=== PATIENT | female | born 1985 | race African-American/Black ===

== ENCOUNTER 2016-04-08 12:08 | Day surgery (SDC) | payer OTHER ==
[~2016-04-08 12:08] MED LIST: LEVOFLOXACIN/D5W 150 ML IV PRN
[2016-04-08] MEDS ORDERED: RINGERS SOLUTION,LACTATED 1,000 ML IV ONE ×2 (13:15→14:31)
[2016-04-08] MEDS ORDERED: ISOPROPYL ALCOHOL 480 APPL BTL MC ONE (14:15)
[2016-04-08] MEDS ORDERED: MUPIROCIN 22 APPL TUBE TP ONE (14:29)
[2016-04-08] MEDS ORDERED: BUPIVACAINE HCL/EPINEPHRINE 50 ML VIAL IJ ONE ×2 (14:29)
[2016-04-08] MEDS: RINGERS SOLUTION,LACTATED 1,000 ML IV PRN ×2 (16:15→16:23)
[2016-04-08] MEDS ORDERED: PANTOPRAZOLE SODIUM 40 MG/100 ML PIGGYBACK IV ONE (16:53)
[2016-04-08] MEDS ORDERED: METOCLOPRAMIDE HCL 5 MG/ML VIAL IV ONE ×2 (17:00→17:15)
[2016-04-08] MEDS: MORPHINE SULFATE 2 MG/ML DISP.SYRIN IV PRN ×2 (17:11→17:32)
[2016-04-08] MEDS ORDERED: METOCLOPRAMIDE HCL 5 MG/ML VIAL IV PRN (17:15)
[2016-04-08] MEDS ORDERED: HYDROmorphone HCL 2 MG TABLET PO ONE ×2 (17:15→18:00)
[2016-04-08] MEDS ORDERED: PANTOPRAZOLE SODIUM 40 MG in NORMAL SALINE 100 ML IV ONE (17:15)
--- NOTE | 2016-04-08 18:04 | OR ---
Operative Report - Dictated Report Narrative: OPERATIVE REPORT DATE OF OPERATION: 04/08/2016 PREOPERATIVE DIAGNOSIS: Biliary dyskinesia. Nausea POSTOPERATIVE DIAGNOSIS: Gastropathy (pathology and CLOtest pending). Significant duodenitis. Gallbladder pathology pending. Significant adhesions from the duodenum to the undersurface of the right lobe of the liver OPERATION: EGD with gastric and duodenal biopsies. Laparoscopic cholecystectomy. Lysis of adhesions to liberate the right lobe of the liver liver and return the duodenum to normal anatomic position SURGEON: ALLEN Guerra MD ANESTHESIA Gen. endotracheal Nhan Ochoa CRNA INDICATIONS FOR PROCEDURE: The patient is a 30-year-old female referred by Dr. Puente. She was initially seen in December with complaints of persistent nausea. Gallbladder ultrasound was normal. HIDA scan revealed ejection fraction of 28% and reproduced her nausea. She had a subsequent ER visit at [facility] for nausea and returned here following an unsuccessful trial of laxatives and PPI/carafate FINDINGS: Gastropathy. Significant duodenitis with erosions (pathology and CLOtest pending) . Gallbladder pathology pending. Significant adhesions from the duodenum to the undersurface of the right lobe of the liver indicating previous inflammation. NARRATIVE OF PROCEDURE: The patient was identified preoperatively. Prior to the administration of anesthetic a multidisciplinary timeout observed. With the patient in the supine position, SCDs were placed, IV Levaquin administered due to multiple other antibiotic allergies, and general endotracheal anesthetic administered. Esophagogastroduodenoscopy: The flexible fiberoptic gastroscope was advanced alongside the endotracheal tube into the posterior pharynx which appeared normal. The tube was seen to be in good position. The supraglottic larynx appeared normal. The scope was advanced under direct vision into the esophagus which appeared normal down to the gastroesophageal junction, where the mucosal transition was sharp and noninflamed the stomach was entered and insufflated with air. There was mild newton gastritic erythema and friability but no jitendra gastric ulcers or neoplastic lesions were appreciated including a retroflexed view of the gastric fundus. The scope was redirected toward the pylorus which appeared patent. The scope was advanced into the duodenal bulb. Immediately apparent were multiple linear erythematous areas in the duodenal bulb and descending portion of the duodenum. The scope was advanced to the horizontal portion of the duodenum which appeared normal. The distal portions of duodenal mucosa appeared grossly normal with retained villous architecture. Clear bile was present. The scope was then slowly withdrawn to the duodenal polyp. No jitendra ulcer was identified. A nutrition representative biopsy of an area of erythema was obtained and submitted for pathology. The biopsy site was seen to be hemostatic. The scope was then withdrawn into the stomach and biopsies of antral mucosa obtained and submitted for pathology and CLOtest. The biopsy sites were seen to be hemostatic. The insufflated air was removed the scope was withdrawn from the patient and this portion of the procedure terminated. Laparoscopic cholecystectomy and lysis of adhesions: The patient's abdomen was prepped with Betadine solution and a generous operating field outlined with 4 sterile towels. The remainder the patient was covered with a sterile disposable drape. An infraumbilical skin incision was made. Dissection was carried along the umbilical stalk until the fascia of the linea alba was encountered. This was incised. The peritoneum was then elevated and incised to allow entry into the abdomen under direct vision. A Hussan cannula was placed, and the abdomen insufflated with CO2. The laparoscopic camera was introduced and the abdomen briefly explored. Those portions of the liver, stomach, small bowel and omentum visualized appeared normal. There was a large amount of stool in the ascending colon and several filmy adhesions adhesions from the ascending colon to the anterolateral abdominal wall. There were no windows which would predispose to herniation and so these adhesions were left undisturbed. Next under direct vision 3 additional working ports were inserted through separate skin incisions, one in the subxiphoid, one in the right upper quadrant, and one in the right flank. The apex of the gallbladder was elevated. The gallbladder itself appeared grossly normal. There were however marked adhesions from the descending portion of the duodenum to the area of the cystic duct and the entire undersurface of the right lobe of the liver. The apex of the gallbladder was retracted cephalad. This gave a clear view of the adhesions which were then carefully lysed under direct vision to free the entire right lobe of the liver and returned and duodenum to normal anatomic position. The cystic duct was then located and dissected free for a sufficient distance for confident identification. It was doubly clipped and divided. The cystic artery was identified doubly clipped and divided. The gallbladder was then removed from the liver bed by retrograde electrocautery dissection. Prior to severing the last attachments of the gallbladder the liver bed was inspected and found to be hemostatic with no evidence of bile leak. The previously placed clips were seen to be intact. The right upper quadrant was suctioned clean. The last attachments of the gallbladder were divided. It was placed in an Endobag and parked in the right upper quadrant. The smaller working ports were withdrawn under direct vision to ensure entry site hemostasis. The gallbladder was removed in conjunction with the Hussan cannula. The pneumoperitoneum was allowed to escape, and after receiving a correct sponge needle and instrument count attention was turned to closing the abdomen. The fascia and peritoneum at the umbilicus were approximated with interrupted sutures of #1 Vicryl. Skin incisions were approximated with interrupted vertical mattress sutures of 4-0 nylon. The operative sites were washed and dried. Dressings of Bactroban ointment and large Band-Aids were applied to the small port sites. The umbilical incision was dressed with Bactroban ointment, 2 x 2, large Band-Aid and Medipore tape. The operative procedure was terminated at this point. The patient tolerated the anesthetic and procedure well without complication. There was no measurable blood loss. The gallbladder was submitted to pathology. 0.5% Marcaine with epinephrine was used for local anesthetic infiltration. The patient was transferred to the recovery room awake, extubated , and in stable condition. Reviewed and electronically signed
[2016-04-08 18:49] VITALS: BP 109/62
== END 2016-04-08 12:09 | disposition home or self-care (01) ==
LOC: AMB 12:08
PROVIDERS: ATTEND Surgery
PROC: 0DB98ZX Excision of Duodenum, Via Natural or Artificial Opening Endoscopic, Diagnostic (ICD-10-PCS; 2016-04-08)
PROC: 0DB68ZX Excision of Stomach, Via Natural or Artificial Opening Endoscopic, Diagnostic (ICD-10-PCS; 2016-04-08)
PROC: 0FT44ZZ Resection of Gallbladder, Percutaneous Endoscopic Approach (ICD-10-PCS; principal; 2016-04-08 14:00)
PROC: 0FN14ZZ Release Right Lobe Liver, Percutaneous Endoscopic Approach (ICD-10-PCS; 2016-04-08 14:00)
DX: K81.1 Chronic cholecystitis (principal); K29.70 Gastritis, unspecified, without bleeding; K82.8 Other specified diseases of gallbladder; K29.80 Duodenitis without bleeding; K66.0 Peritoneal adhesions (postprocedural) (postinfection); F17.200 Nicotine dependence, unspecified, uncomplicated; Z68.24 Body mass index [BMI] 24.0-24.9, adult